=== PATIENT | female | born 1995 | race Two or more races ===

== ENCOUNTER 2025-02-13 22:15 | Emergency (ER) | payer MEDICAID, OTHER ==
[~2025-02-13] VITALS: Ht 154.9 cm; Wt 59.7 kg
--- NOTE | 2025-02-13 23:16 | ED.PDOC ---
[employer] SAL[employer]ESSIONAL HPI Comments 29-year-old female came to ER for vaginal bleeding. Patient is a approximately 3 weeks , states she has been having vaginal bleeding/spotting for the past 3 days. Was seen yesterday at an emergency room, diagnosed with UTI, started on Keflex. Noted worsening of vaginal spotting today, with lower abdominal cramping pain, blood clots, hematuria, prompted patient to come back to the ER. Chief Complaint: Vaginal Bleed Time Seen by MD: 23:15 Reviewed Notes: Nurses Notes Allergies: Coded Allergies: NO KNOWN ALLERGIES (Unverified , 02/13/25) Information Source: Patient Mode of Arrival: Ambulatory Timing: Days Prehospital treatment: None Severity: Moderate Bleeding Quality: Bright Red, Clotted Onset Of Mass/Bleeding: Spontaneous History of: Current Associated Signs and Symptoms: Vaginal Bleeding, Abdominal Pain Review of Systems REVIEW OF SYSTEMS: No fever, no chills, or fatigue HEENT: No sore throat, no earache, no congestion, no neck pain. Cardiac: No chest pain. No palpitations. Lungs: No shortness of breath, no cough. GI: No nausea, no vomiting, no diarrhea, no constipation, (+) abdominal pain : No dysuria, frequency, or urgency. No hematuria. (+) vaginal bleeding Musculoskeletal: No joint pain , no joint swelling, no extremity edema. Skin: No rash, no itching. Neuro: No headache, no dizziness, no weakness Vital Signs Vital Signs Date Time Temp Pulse Resp B/P (MAP) Pulse Ox O2 Delivery O2 Flow Rate FiO2 02/14/25 02:40 70 20 97 Room Air 02/14/25 02:40 97.8 105/58 (74) 97.8 Physical Exam PHYSICAL EXAM: General: Awake, alert and oriented. No acute distress. Skin: Skin in warm, dry and intact without rashes or lesions. HEENT: The head is normocephalic and atraumatic. Conjunctivae are clear without exudates or hemorrhage. Sclera is non-icteric. Neck: Normal range of motion. No JVD. Cardiac: Regular rate Abdominal: Mild suprapubic tenderness, no CVA tenderness Respiratory: No signs of respiratory distress. No Stridor. Extremities: Upper and lower extremities are atraumatic in appearance without deformity. Neurological: The patient is awake, alert and oriented to person, place, and time with normal speech. Speech is clear. There is no facial asymmetry. Normal gait Psychiatric: Appropriate mood and affect. Good judgement and insight. Past Medical History PAST MEDICAL HISTORY: UTI'S Surgical History: Denies all surgeries 3 Para 2 LMP January 03, 2025 Family History Family History: Reviewed,noncontributory to illness Social History Smoker: Non-Smoker Alcohol: Denies ETOH Use Drugs: Denies Drug Use Lives In: Home Was a procedure done? Was a procedure done?: No Differential Diagnosis (PROCESS ARCHITECT) Vaginal Bleeding: - Missed, - Threatened, Blood Loss Anemia, UTI, Vaginitis X-Ray, Labs, Meds, VS Vital Signs Date Time Temp Pulse Resp B/P (MAP) Pulse Ox O2 Delivery O2 Flow Rate FiO2 02/14/25 02:40 70 20 97 Room Air 02/14/25 02:40 97.8 70 20 105/58 (74) 97 97.8 02/13/25 22:49 98.4 70 18 115/61 (79) 96 98.4 Lab Test 02/13/25 23:11 02/13/25 22:50 Range/Units White Blood Count 8.1 4.4-10.8 10^3/uL Red Blood Count 4.41 4.0-5.20 10^6/uL Hemoglobin 12.7 12.2-16.2 g/dL Hematocrit 37.8 36.0-46.0 % Mean Corpuscular Volume 85.7 80.0-100.0 fL Mean Corpuscular Hemoglobin 28.8 28.0-32.0 pg Mean Corpuscular Hemoglobin Concent 33.6 32.0-36.0 g/dL Red Cell Distribution Width 14.3 11.8-14.3 % Platelet Count 202 140-450 10^3/uL Mean Platelet Volume 8.8 6.9-10.8 fL Neutrophils (%) (Auto) 50.8 37.0-80.0 % Lymphocytes (%) (Auto) 40.4 10.0-50.0 % Monocytes (%) (Auto) 6.4 0.0-12.0 % Eosinophils (%) (Auto) 1.9 0.0-7.0 % Basophils (%) (Auto) 0.5 0.0-2.0 % Neutrophils # (Auto) 4.1 1.6-8.6 10 ^3/uL Lymphocytes # (Auto) 3.3 0.4-5.4 10 ^3/uL Monocytes # (Auto) 0.5 0-1.3 10 ^3/uL Eosinophils # (Auto) 0.2 0-0.8 10 ^3/uL Basophils # (Auto) 0 0-0.2 10 ^3/uL Nucleated Red Blood Cells 0.0 % Sodium Level 138 136-145 mmol/L Potassium Level 3.8 3.5-5.1 mmol/L Chloride Level 103 98-107 mmol/L Carbon Dioxide Level 27 20-31 mmol/L Anion Gap 8 5-15 Blood Urea Nitrogen 16 9-23 mg/dL Creatinine 0.81 0.550-1.02 mg/dL Glomerular Filtration Rate Calc 100 >90 mL/min BUN/Creatinine Ratio 19.8 10.0-20.0 Serum Glucose 98 74-106 mg/dL Calcium Level 9.1 8.7-10.4 mg/dL Beta HCG, Quantitative 271.2 H 1.5-4.2 mIU/mL Urine Color Light-orange Yellow Urine Clarity Turbid H Clear Urine pH 6.0 5.0-9.0 Urine Specific [place] 1.032 1.001-1.035 Urine Protein Trace H Negative Urine Ketones Negative Negative Urine Blood 3+ H Negative /uL Urine Nitrite Negative Negative Urine Bilirubin Negative Negative Urine Urobilinogen 2 H Negative mg/dL Urine Leukocyte Esterase 3+ Negative /uL Urine RBC 49 0 - 4 /hpf Urine Microscopic WBC 61 H 0-5 /HPF Urine Squamous Epithelial Cells Mod <5 /hpf Urine Bacteria None seen None Seen /hpf Urine Hyaline Casts Few 0 - 2 /lpf Urine Mucus Few None Seen Urine Glucose Normal Normal mg/dL Chlamydia trachomatis (ABIODUN) Pending Neisseria gonorrhoeae (ABIODUN) Pending Time of 1ST Reevaluation: 23:13 Reevaluation 1ST: Unchanged Patient Education/Counseling: Need For Follow Up Family Education/Counseling: No Family Present Departure 1 Departure Time of Disposition: 02:16 Impression: Primary Impression: , location unknown Disposition: HOME / SELF CARE / HOMELESS Condition: Stable Additional Instructions: ED DISCHARGE INSTRUCTIONS Instructions: Please read all instructions provided in this packet carefully. Although you have been discharged from the Emergency Department, this does not mean that you have a "clean bill of health". No definitive diagnosis for your symptoms has been made today. It is possible that you are in the process of developing a serious illness. This is why you must return to the ED without fail if any new or worsening symptoms (especially if your symptoms include heavy vaginal bleeding, lightheadedness, dizziness, weakness, chest pain, trouble breathing, abdominal pain, fever, headache, confusion, trouble seeing, or trouble walking) It is also very important that you see a primary care provider (PCP) or plate straightener within the next 3-5 days to follow up. You will need a repeat level and ultrasound. If you are unable to get an appointment, return to the ED for re-evaluation. What is PUL? of unknown location (PUL) is when you have a positive urine or blood test, and the cannot be seen on ultrasound. When you have a PUL, it must be found. Your care team will decide if it will grow safely. Why we cannot see it on ultrasound? It is too early to see A person is having a miscarriage There is an ectopic What is an ectopic ? It is a that started outside the uterus. This can be life threatening It is never normal You will need close follow up with: Ultrasounds Blood work Visits with your care team Ectopic pregnancies happen most often inside the fallopian tube. It can also be called a tubal . Other places they can be found are: The cervix A scar An ovary The abdomen 2 out of 100 pregnancies will be outside of the uterus (ectopic). The cannot carry on because: They can be life threatening Cannot be a viable Cannot be moved to the uterus When found early, some can be treated with a medicine called methotrexate. You may need a minor surgery to remove the or your fallopian tube. Caring for yourself at home Until the is found, you should: Get pelvic rest (do not douche, use tampons, or have sex). Not take ibuprofen, Motrin, aspirin, or other NSAID medicines Take acetaminophen (Tylenol) as needed. Drink lots of water Take your medicine unless told by your care team Do not wait until the clinic is open. Call right away or go to your emergency room if you have: Heavy vaginal bleeding (soaking through a pad in less than 1 hour) Abdominal pain that is severe or gets worse Lightheadedness or fainting Follow-up Close follow-up is needed for a PUL A blood test. This test is known as a serum beta human chorionic gonadotrophin (HCG). It may be called a qaunt Return to get your second HCG 48 hours after this visit. Your HCG level should go up by about 66% in that time if: the is normal it is growing in your uterus An ultrasound in 7 to 14 days You need to return to have tests done. Comments Patient advised to return to the emergency department for evaluation if she is unable to get her appointment with her primary care provider or plate straightener. Otherwise she should see her plate straightener with a 1 week for repeat hCG and ultrasound. Critical Care Note Critical Care Time?: No Stability Stability form required: No Heart Score Heart Score: Heart Score Response (Comments) Value History N/A 0 EKG N/A 0 Age N/A 0 Risk Factors N/A 0 Troponin N/A 0 Total 0 I personally scribed for SASCHA BRAY MD ([employer]) on 02/13/25 at 23:16. Electronically submitted by Sohail Sandoval ([employer]). I personally scribed for SASCHA BRAY MD ([employer]) on 02/13/25 at 23:23. Electronically submitted by Sohail Sandoval ([employer]). SASCHA BRAY MD Feb 13, 2025 23:16
[2025-02-13 23:39] LABS: Hematocrit 37.8 % (36.0-46.0); Hemoglobin 12.7 g/dL (12.2-16.2); Mean Corpuscular Hemoglobin 28.8 pg (28.0-32.0); Mean Corpuscular Volume 85.7 fL (80.0-100.0); Nucleated Red Blood Cells % 0.0 %
[2025-02-13 23:42] LABS: Chloride 103 mmol/L (98-107); Potassium 3.8 mmol/L (3.5-5.1); Sodium 138 mmol/L (136-145)
[2025-02-13 23:43] LABS: Anion Gap 8 (5-15); Carbon Dioxide 27 mmol/L (20-31)
[2025-02-13 23:44] LABS: Calcium 9.1 mg/dL (8.7-10.4)
[2025-02-13 23:49] LABS: BUN/Creatinine Ratio 19.8 (10.0-20.0); Blood Urea Nitrogen 16 mg/dL (9-23); Glucose 98 mg/dL (74-106)
[2025-02-14 00:04] LABS: Urine Protein, UAD TRACE (Negative)
--- NOTE | 2025-02-14 01:09 | DVH ---
OB ULTRASOUND <14 WEEKS: HISTORY: Vaginal Bleeding during TECHNIQUE: Multiple real-time grayscale sonographic images of the pelvis with duplex Doppler color f low, spectral and M-mode analysis. FINDINGS: The uterus measures 10.6 x 5.4 x 6.6 cm. The endometrium is thickened measuring 22 mm. No intrauterin e gestational sac is seen. Right ovary measures 2.2 x 1.5 x 2.9 cm with normal Doppler color flow. Left ovary measures 3.0 x 1.8 x 2.8 cm with normal Doppler color flow. Possible small left corpus aravind teal cyst. No free fluid is seen. IMPRESSION: 1. Thickened endometrium. No intrauterine is seen. Findings may reflect early intrauterine or of unknown location. Close clinical correlation with HCG values and close son ographic follow-up is suggested. No acute abnormality detected.
[2025-02-14 02:40] VITALS: BP 105/58; PULSE 70; RESP 20; TEMP 97.8; O2SAT 97
[2025-02-16 18:07] LABS: Chlamydia Trachomatis, NAA Negative (Negative); Neisseria gonorrhoeae, NAA Negative (Negative)
== END 2025-02-14 02:42 | disposition home or self-care (01) ==
LOC: ER 22:15
DX: O20.9 Hemorrhage in early pregnancy, unspecified (principal); O23.591 Infection of other part of genital tract in pregnancy, first trimester; R10.2 Pelvic and perineal pain; Z87.440 Personal history of urinary (tract) infections; Z3A.01 Less than 8 weeks gestation of pregnancy
CPT/HCPCS: 36415; 76801; 76817; 80048; 81001; 84702; 85025; 86850; 86900; 86901